=== PATIENT | female | born 1995 | race Hispanic/Latino ===

== ENCOUNTER 2024-11-12 01:30 | Inpatient (IN) | payer BC ==
[~2024-11-12] VITALS: Ht 162.6 cm; Wt 83.4 kg
[2024-11-12] MEDS: 0.9%NACL 1000ML 1,000 ML IV STA (01:46)
[2024-11-12 01:49] LABS: IMMATURE GRANULOCYTE ABSOLUTE 0.07 K/uL (0-1); NUCLEATED RED BLOOD CELLS 0.0 % (0.0-0.19); PLATELET COUNT (AUTO) 470 K/uL (130-400); RED BLOOD CELL COUNT(AUTO) 4.55 MIL/uL (4.00-5.50); RED CELL DISTRIBUTION WIDTH 14.4 % (11.0-15.5); WHITE BLOOD COUNT (AUTO) 15.6 K/uL (4.8-10.8)
[2024-11-12 02:12] LABS: CREATININE 0.7 mg/dL (0.5-1.0); GLOMERULAR FILTR. RATE CALC 121.0 mL/min (>90); GLUCOSE,RANDOM 157.0 mg/dL (70-105); HCG,QUANTITATIVE 0.0 mIU/mL (0-5); SODIUM SERUM 141.0 mmol/L (136-145); UREA NITROGEN, BLOOD 19.0 mg/dL (7-18)
--- NOTE | 2024-11-12 02:12 | ERN ---
ED Note History of Present Illness Stated Complaint: CHEST DISCOMFORT AFTER EATING EDIBLE Chief Complaint: Chest Pain Time Seen by MD: 01:33 Time Seen by Midlevel: 01:35 Dictation: 29-year-old female coming in via EMS for a hot sensation to the chest after eating an edible. No other complaints at this time. Allergies: Coded Allergies: No Known Drug Allergies (Unverified Allergy, Unknown, 11/12/24) Past Medical History Past Medical History: No Pertinent History Surgical History: Unknown Review of System Dictation Constitutional: Negative for fever,chills, and weight loss Eyes: Negative for injury, pain,redness, and discharge ENT: Negative for injury,pain or swelling Cardiovascular: Negative for chest pain, palpitations, and edema Respiratory: Negative for shortness of breath, cough, and wheezing, Abdomen/GI: Negative for abdominal pain, nausea, vomiting, diarrhea, and constipation Back: Negative for injury and pain : Negative for injury, bleeding and discharge MS/Extremity: Negative for injury and deformity Skin: Negative for rash, and discoloration Neuro: Negative for headache, weakness, numbness, tingling, and seizure Psych: Negative for suicide ideation, homicidal ideation, and hallucinations Review of Systems: was completed Initial Vital Sign VS Vital Signs Date Time Temp Pulse Resp B/P (MAP) Pulse Ox O2 Delivery O2 Flow Rate FiO2 11/12/24 01:32 98.8 124 19 128/78 100 Room Air 0 11/12/24 01:38 21 Physical Exam Dictation General: awake, alert, NAD Head/Face: Normocephalic, atraumatic Eyes: PERRL, EOMI, vision at baseline ENT: oral cavity clear, TMs clear, no signs of infection Neck: Trachea midline, supple, no nuchal rigidity Cardiovascular: RRR, normal S1/S2, No MRGs, no JVD Respiratory: CTAB, no respiratory distress, No rales or wheezes Abdomen: Soft, non-tender, non-distended, normal bowel sounds, no guarding or rebound. Skin: Warm, dry, normal turgor, no rash MS/Extremity: Pulses equal, no cyanosis, neurovascular intact, FROM Neuro: COAx4, GCS 15, strength 5/5, CN 2-12 intact, normal cerebellar exam, normal gait, Psych: Normal behavior, mood, and affect normal Results (Laboratory/Radiology) Laboratory/Radiology Laboratory Tests Test 11/12/24 01:35 11/12/24 03:22 11/12/24 06:30 White Blood Count 15.6 K/uL (4.8-10.8) H Red Blood Count 4.55 MIL/uL (4.00-5.50) Hemoglobin 11.9 g/dL (12.0-16.0) L Hematocrit 34.7 % (36-48) L Mean Corpuscular Volume 76.3 fL (79-99) L Mean Corpuscular Hemoglobin 26.2 pg (27.0-33.0) L Mean Corpuscular Hemoglobin Concent 34.3 g/dL (32.0-36.0) Red Cell Distribution Width 14.4 % (11.0-15.5) Platelet Count 470 K/uL (130-400) H Mean Platelet Volume 9.8 fL (7.5-10.5) Immature Granulocyte % (Auto) 0.4 % (0-1) Neutrophils (%) (Auto) 61.9 % (40.0-77.0) Lymphocytes (%) (Auto) 29.5 % (21.0-51.0) Monocytes (%) (Auto) 5.8 % (3.0-13.0) Eosinophils (%) (Auto) 1.6 % (0.0-8.0) Basophils (%) (Auto) 0.8 % (0.0-5.0) Neutrophils # (Auto) 9.7 K/uL (1.8-7.7) H Lymphocytes # (Auto) 4.6 K/uL (1.0-4.8) Monocytes # (Auto) 0.9 K/uL (0.1-1.0) Eosinophils # (Auto) 0.25 K/uL (0.00-0.70) Basophils # (Auto) 0.12 K/uL (0.00-0.20) Absolute Immature Granulocyte (auto 0.07 K/uL (0-1) Nucleated Red Blood Cells 0.0 % (0.0-0.19) Sodium Level 141 mmol/L (136-145) 138 mmol/L (136-145) Potassium Level 3.0 mmol/L (3.5-5.1) *L 4.6 mmol/L (3.5-5.1) Chloride Level 104 mmol/L (101-111) 105 mmol/L (101-111) Carbon Dioxide Level 25 mmol/L (21-32) 26 mmol/L (21-32) Blood Urea Nitrogen 19 mg/dL (7-18) H 14 mg/dL (7-18) Creatinine 0.7 mg/dL (0.5-1.0) 0.7 mg/dL (0.5-1.0) Glomerular Filtration Rate Calc 121 mL/min (>90) 121 mL/min (>90) Random Glucose 157 mg/dL (70-105) H 108 mg/dL (70-105) H Total Calcium 9.1 mg/dL (8.5-10.1) 8.6 mg/dL (8.5-10.1) Troponin I High Sensitivity 9 ng/L (4-50) Human Chorionic Gonadotropin, Quant 0 mIU/mL (0-5) Urine Color LIGHT-YELLOW (YELLOW) Urine Appearance CLOUDY (CLEAR) H Urine pH 5.0 (5.0-8.0) Urine Specific [place] 1.022 (1.001-1.031) Urine Protein NEGATIVE mg/dL (NEGATIVE) Urine Glucose (UA) NEGATIVE mg/dL (NEGATIVE) Urine Ketones NEGATIVE mg/dL (NEGATIVE) Urine Occult Blood SMALL (NEGATIVE) H Urine Nitrate NEGATIVE (NEGATIVE) Urine Bilirubin NEGATIVE mg/dL (NEGATIVE) Urine Urobilinogen 0.2 mg/dL (0.2-1.0) Urine Leukocyte Esterase 250 Rhett/uL (NEGATIVE) H Urine RBC 2-5 /HPF (0-1) H Urine WBC 11-25 /HPF (0-1) H Urine Squamous Epithelial Cells FEW /HPF (0-2) Urine Bacteria MOD /HPF (None Seen) Urine Opiates Screen NEGATIVE (NEGATIVE) Urine Barbiturates Screen NEGATIVE (NEGATIVE) Urine Phencyclidine Screen NEGATIVE (NEGATIVE) Urine Amphetamines Screen NEGATIVE (NEGATIVE) Urine Benzodiazepines Screen NEGATIVE (NEGATIVE) Urine Cocaine Screen NEGATIVE (NEGATIVE) Urine Marijuana (THC) Screen POSITIVE (NEGATIVE) H Labs Reviewed?: Yes EKG Comment: EKGs done at 0200. Sinus tachycardia at a rate of 122. No STEMI interpreted by ER ED Course ED Course Orders Procedure Category Date Status Time Cbc With Differential LAB 11/12/24 Complete 01:33 Basic Metabolic Panel LAB 11/12/24 Complete 01:33 Troponin I High LAB 11/12/24 Complete Sensitivity 01:33 Hcg,Quantitative LAB 11/12/24 Complete 01:33 12 Lead Ekg Tracing- EKG 11/12/24 Complete Technical 01:33 0.9%Nacl 1000ml (Ns PHA 11/12/24 Complete 1000ml) 01:36 Drug Screen Urine LAB 11/12/24 Complete 02:13 Urinalysis Profile LAB 11/12/24 Complete 02:13 Lorazepam 1 Mg PHA 11/12/24 Complete (Ativan) 02:44 Ondansetron 4mg Inj PHA 11/12/24 Complete (Zofran 4mg Inj) 02:44 Potassium Bicarb/Cit PHA 11/12/24 Complete Ac 25meq (K-Lyte Ta 02:44 Culture Urine JUSTYNA 11/12/24 In Process 03:43 Ceftriaxone 2gm Vial PHA 11/12/24 Complete (Rocephin 2gm Inj) 05:00 Lactated Ringers PHA 11/12/24 In Process 1000ml (Lactated 06:00 Basic Metabolic Panel LAB 11/12/24 Complete 05:51 Chest 1vw RAD 11/12/24 Taken 05:51 Current Medications Medications (Trade) Dose Ordered Sig/Bibi Route PRN Reason Start Time Stop Time Status Last Admin Dose Admin Ceftriaxone Sodium (Rocephin 2gm Inj) 2 gm ONCE ONCE IVPB 11/12/24 05:00 11/12/24 05:01 DC 11/12/24 05:04 Lactated Ringer's 546 ml @ 182 mls/hr ONCE ONCE IV 11/12/24 06:00 11/12/24 08:59 11/12/24 06:02 Lorazepam (AtiVAN) 1 mg ONCE STAT PO 11/12/24 02:44 11/12/24 02:47 DC 11/12/24 02:54 Ondansetron HCl (zoFRAN 4MG INJ) 4 mg ONCE STAT IVP 11/12/24 02:44 11/12/24 02:47 DC 11/12/24 02:53 Potassium Bicarbonate (K-Lyte Tablet Eff 25 Meq Tablet.eff) 50 meq ONCE STAT PO 11/12/24 02:44 11/12/24 02:47 DC 11/12/24 02:54 Sodium Chloride 1,000 ml @ 1,000 mls/hr Q1H STAT IV 11/12/24 01:36 11/12/24 02:35 DC 11/12/24 01:46 Vital Signs Date Time Temp Pulse Resp B/P (MAP) Pulse Ox O2 Delivery O2 Flow Rate FiO2 11/12/24 06:54 101 15 98/52 97 Room Air* 0 11/12/24 05:55 108 15 94/55 97 Room Air* 0 11/12/24 04:15 115 14 105/61 97 Room Air* 0 11/12/24 03:44 120 14 100/54 98 Room Air* 0 11/12/24 02:18 129 19 99/53 97 Room Air* 0 11/12/24 01:38 98.2 123 20 101/63 99 Room Air* 0 11/12/24 01:32 98.8 124 19 128/78 100 Room Air 0 Medical Decision Making MDM MDM: Differential diagnosis: UTI, hypotension, tachycardia, CBD abuse, Rationale: Tests considered and ordered secondary to shared decision making include: labs, ECG and radiology Previous outside records reviewed: Old ER visits. Risk of complication and/or morbidity or mortality of patient management: None Medications-Per medication reconciliation Need for hospitalization: Patient does meet criteria for hospitalization. Need for emergency major/minor surgery: No There are no social concerns with this patient. Prescription drug management Prescriptions will include symptomatic care Patient's prior external medical records from other ER visits were reviewed by me as indicated. Prior testing and results from previous visits were reviewed. Prior tests were taken into account with medical decision making and resource utilization, independent historian/historians were used to obtain complete medical history. I independently interpreted the test that were performed, results were reviewed by me and considered findings on radiology if ordered. Medical management and examination interpretation discussions were had by me with other qualified healthcare professionals as indicated for the patient's care. Patient is a 29-year-old female coming in complaining of generalized body weakness. Vital signs showed patient to be hypotensive and tachycardic patient did admit to using CBD gummies, patient was found to have elevated white blood cell count with a UTI. Antibiotics were given. Patient did improved but on ambulation become slightly hypotensive the patient has been admitted under the care of [facility] for ongoing management. DX & DISP Disposition: Inpatient Decision to Admit Time: 07:38 Departure Impression: Primary Impression: Sepsis Additional Impressions: UTI (urinary tract infection), Cannabis abuse Condition: Stable Referrals: CASSIDY CRAWFORD MD (PCP) JUVENAL LISA NP Nov 12, 2024 02:12 ANA PAGE MD Nov 12, 2024 06:32 SUNDAY CORONADO MD Nov 12, 2024 07:40
--- NOTE | 2024-11-12 02:18 | NUR ---
PT CARE ASSUMED AT THIS TIME
[2024-11-12 03:42] LABS: APPEARANCE,URINE CLOUDY (CLEAR); GLUCOSE, URINE (UA) NEGATIVE (NEGATIVE); LEUKOCYTE ESTERASE ,URINE 250 Leu/uL (NEGATIVE); NITRATE,URINE NEGATIVE (NEGATIVE); OCCULT BLOOD,URINE SMALL (NEGATIVE)
[2024-11-12 03:43] LABS: ADD UA MICROSCOPIC YES
[2024-11-12 03:46] LABS: SQUAMOUS EPITHELIAL CELL,UR FEW /HPF (0-2)
[2024-11-12 03:50] LABS: AMPHET/METH SCREEN,URINE NEGATIVE (NEGATIVE); BARBITURATE SCREEN, URINE NEGATIVE (NEGATIVE); CANNABINOID SCREEN,URINE POSITIVE (NEGATIVE); COCAINE SCREEN,URINE NEGATIVE (NEGATIVE)
[2024-11-12] MEDS: LACTATED RINGERS 1000ML 546 ML IV ONE (06:02)
--- NOTE | 2024-11-12 06:52 | NUR ---
PER DR. PAGE FLUIDS OF LR IS TO BE STOPPED AT THIS TIME.
[2024-11-12 06:59] LABS: CREATININE 0.7 mg/dL (0.5-1.0); GLOMERULAR FILTR. RATE CALC 121.0 mL/min (>90); GLUCOSE,RANDOM 108.0 mg/dL (70-105); SODIUM SERUM 138.0 mmol/L (136-145); UREA NITROGEN, BLOOD 14.0 mg/dL (7-18)
--- NOTE | 2024-11-12 07:08 | NUR ---
REPORT GIVEN TO MONTY GRACIA AT THIS TIME
--- NOTE | 2024-11-12 07:17 | EKG ---
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
[2024-11-12] MEDS: LACTATED RINGERS 1000ML IV SCH (08:23)
[2024-11-12] MEDS: FAMOTIDINE 20MG TAB PO SCH (08:48)
[2024-11-12 09:35] LABS: CREATINE KINASE, TOTAL 81.0 U/L (21-232); HCG,QUANTITATIVE 0.0 mIU/mL (0-5)
--- NOTE | 2024-11-12 11:17 | NUR ---
DCP: HOME Per mother Katherine Mason [phone] who was at bedside, pt lives in apt with her moises Teague [phone]. Pt works at [employer], is independent of her own ADLS, ambulation, home management and meal prep. PCP is Herminio Abarca and uses [facility] for rx. Mother denies dc needs and pt will return home at dc Addendum: 11/12/24 at 1120 by ANNE SOARES SS Amended: Links added.
--- NOTE | 2024-11-12 15:02 | HP ---
[facility] HISTORY & PHYSICAL Date Patient Seen: Nov 12, 2024 Time of Visit: 1200 Supervising Physician: Dr. Arambula Primary Care Physician: Dr. Nikia Abarca Outpatient Specialists: [ ] Inpatient Consults: [ ] PROBLEM LIST: Atypical angina after consuming a edible Acute complicated cystitis Substance abuse HPI: This is a 29-year-old female with no past medical history coming in to the emergency department for complaints of chest discomfort after eating a edible. At time of visit patient denies any reoccurrence chest discomfort or chest pain. Patient's troponin levels have been unremarkable. Patient's UDS positive for THC. Patient did have a white count of 15.6, and noted to have a urinary tract infection. We will start patient on Rocephin2 g daily. We will follow up with the urine culture. Patient's EKG shows sinus tach, we will start gentle IV hydration and repeat labs tomorrow, and continue to monitor patient closely PAST MEDICAL HX: see above PAST SURGICAL HX: noncontributory SOCIAL HISTORY: No tobacco, ETOH, or illicit drug use Coded Allergies: No Known Drug Allergies (Unverified Allergy, Unknown, 11/12/24) REVIEW OF SYSTEMS: 12 point ROS reviewed with patient. Pertinent positives mentioned above. Otherwise negative. PHYSICAL EXAM: GENERAL: alert, weak, awake oriented x 3 HEENT: EOMI, Sclera non icteric, moist mucosa NECK: Supple, no JVD, trachea midline LUNGS: Clear breath sounds bilaterally. No wheezes HEART: Regular rate and rhythm. Normal S1 and S2, without murmurs ABD: Abdomen soft, nontender. Bowel sounds present EXT: No clubbing cyanosis or edema NEURO: Alert and oriented to person, follows commands Vital Signs (last 8hr) Date Time Temp Pulse Resp B/P (MAP) Pulse Ox O2 Delivery O2 Flow Rate FiO2 11/12/24 13:58 98.2 102 16 105/42 100 Room Air* 0 21 11/12/24 11:02 98.2 113 16 98/42 100 Room Air* 0 21 11/12/24 08:08 98.2 105 16 96/54 100 Room Air* 0 21 LABS: Hematology Labs: Test 11/12/24 01:35 Range/Units White Blood Count 15.6 H 4.8-10.8 K/uL Red Blood Count 4.55 4.00-5.50 MIL/uL Hemoglobin 11.9 L 12.0-16.0 g/dL Hematocrit 34.7 L 36-48 % Mean Corpuscular Volume 76.3 L 79-99 fL Mean Corpuscular Hemoglobin 26.2 L 27.0-33.0 pg Mean Corpuscular Hemoglobin Concent 34.3 32.0-36.0 g/dL Red Cell Distribution Width 14.4 11.0-15.5 % Platelet Count 470 H 130-400 K/uL Mean Platelet Volume 9.8 7.5-10.5 fL Immature Granulocyte % (Auto) 0.4 0-1 % Neutrophils (%) (Auto) 61.9 40.0-77.0 % Lymphocytes (%) (Auto) 29.5 21.0-51.0 % Monocytes (%) (Auto) 5.8 3.0-13.0 % Eosinophils (%) (Auto) 1.6 0.0-8.0 % Basophils (%) (Auto) 0.8 0.0-5.0 % Neutrophils # (Auto) 9.7 H 1.8-7.7 K/uL Lymphocytes # (Auto) 4.6 1.0-4.8 K/uL Monocytes # (Auto) 0.9 0.1-1.0 K/uL Eosinophils # (Auto) 0.25 0.00-0.70 K/uL Basophils # (Auto) 0.12 0.00-0.20 K/uL Absolute Immature Granulocyte (auto 0.07 0-1 K/uL Nucleated Red Blood Cells 0.0 0.0-0.19 % Erythrocyte Sedimentation Rate 15 0-20 MM/HR Chemistry Labs: Test 11/12/24 08:58 11/12/24 06:30 Range/Units Lactic Acid Level 1.6 0.8-2.5 mmol/L Total Creatine Kinase 81 21-232 U/L Troponin I High Sensitivity 10 4-50 ng/L Procalcitonin < 0.05 L 0.05-0.5 ng/mL Thyroid Stimulating Hormone (TSH) 0.87 0.36-3.74 uIU/mL Human Chorionic Gonadotropin, Quant 0 0-5 mIU/mL Sodium Level 138 136-145 mmol/L Potassium Level 4.6 3.5-5.1 mmol/L Chloride Level 105 101-111 mmol/L Carbon Dioxide Level 26 21-32 mmol/L Blood Urea Nitrogen 14 7-18 mg/dL Creatinine 0.7 0.5-1.0 mg/dL Glomerular Filtration Rate Calc 121 >90 mL/min Random Glucose 108 H 70-105 mg/dL Total Calcium 8.6 8.5-10.1 mg/dL DIAGNOSTICS / RADIOLOGY RESULTS: na PLAN Start gentle IV hydration Continue Rocephin2 g daily Repeat labs in a.m. Follow up with the urine culture Continue tele monitoring NEURO: Minimize central acting medications as possible. Maintain fall precautions, adequate lighting during the day PULMONARY: Supplemental 02 as needed. Maintain aspiration precautions at all times CARDIOVASCULAR: Follow hemodynamics. Vital signs per facility protocol GI & NUTRITION: Continue with nutritional support. Continue stool softeners and laxatives as needed. KIDNEYS & ELECTROLYTES: Strict monitoring of intake, output and overall fluid balance. Avoid nephrotoxic medications to the extent possible. Medications to be dosed according to renal function. Monitor electrolytes and replace as needed ENDOCRINE: Maintain blood glucose between 100-180 at all times. Hypoglycemia protocol in place INFECTIOUS DISEASE: Trend temperature, WBC and procalcitonin level Follow cultures, deescalate antibiotics as soon as possible. Panculture if new onset fever ONCOLOGY/HEMATOLOGY/COAGULATION: Monitor for s/s of bleeding Monitor hemoglobin, coagulation studies as needed SKIN: Pressure ulcer prevention per facility protocol Specialty mattress ORTHO/REHAB: Continue PT/OT Prophylaxis: Continue GI and DVT prophylaxis Code Status: Full Resuscitation Disposition: TBD Other: Case discussed with supervising physician plan of care agreed upon MIGUEL GARCIA Nov 12, 2024 15:02
[2024-11-12] MEDS: 0.9%NACL 1000ML 1,000 ML IV SCH (17:26)
--- NOTE | 2024-11-12 18:30 | NUR ---
PATIENT SETTLED INTO HER ROOM. TELE PACK PLACED AND VITALS TAKEN. PATIENT WAS GIVEN INSTRUCTIONS ON USING CALL LIGHT FOR ASSISTANCE. VISITATIONS HOUR WERE MENTIONED. PATIENT DENIES ANY CHEST PAIN AND DENIES SHORTNESS OF BREATH.
[2024-11-12 18:39] VITALS: BP 112/69; PULSE 97; RESP 18; TEMP 97.9
[2024-11-12 20:00] VITALS: BP 114/66; PULSE 105; RESP 18; TEMP 98; O2SAT 98
[2024-11-13] VITALS: PULSE 97; RESP 18; TEMP 98
[2024-11-13 04:00] VITALS: BP 118/64; PULSE 78; RESP 18; TEMP 98.3
[2024-11-13 04:21] LABS: ASPARTATE AMINOTRANSFERASE 22.0 U/L (10-37); CREATININE 0.5 mg/dL (0.5-1.0); GLOMERULAR FILTR. RATE CALC 132.0 mL/min (>90); GLUCOSE,RANDOM 95.0 mg/dL (70-105); SODIUM SERUM 141.0 mmol/L (136-145); TOTAL PROTEIN, SERUM 6.3 g/dL (6.0-8.3); UREA NITROGEN, BLOOD 17.0 mg/dL (7-18)
[2024-11-13 07:24] VITALS: BP 114/75; PULSE 92; RESP 20; TEMP 97.9
[2024-11-13 09:37] VITALS: O2SAT 99
[2024-11-13 11:21] LABS: NUCLEATED RED BLOOD CELLS 0.0 % (0.0-0.19); PLATELET COUNT (AUTO) 359.0 K/uL (130-400); RED BLOOD CELL COUNT(AUTO) 4.02 MIL/uL (4.00-5.50); RED CELL DISTRIBUTION WIDTH 14.7 % (11.0-15.5); WHITE BLOOD COUNT (AUTO) 11.1 K/uL (4.8-10.8)
[2024-11-13 11:52] VITALS: BP 117/72; PULSE 83; RESP 20; TEMP 98.8
--- NOTE | 2024-11-13 12:57 | DS ---
[facility] DISCHARGE SUMMARY Date Patient Seen: Nov 13, 2024 Time of Visit:1205 Supervising Physician: Dr. Arambula Primary Care Physician: Dr. Nikia Abarca Outpatient Specialists: [ ] Inpatient Consults: [ ] PROBLEM LIST: Atypical angina after consuming a edible, resolved Acute complicated cystitis , we will complete treatment with outpatient oral antibiotic Substance abuse HOSPITAL COURSE: HPI (per admitting provider)This is a 29-year-old female with no past medical history coming in to the emergency department for complaints of chest discomfort after eating a edible. At time of visit patient denies any reoccurrence chest discomfort or chest pain. Patient's troponin levels have been unremarkable. Patient's UDS positive for THC. Patient did have a white count of 15.6, and noted to have a urinary tract infection. We will start patient on Rocephin2 g daily. We will follow up with the urine culture. Patient's EKG shows sinus tach, we will start gentle IV hydration and repeat labs tomorrow, and continue to monitor patient closely Patient was seen and examined by bedside with family present. Patient is awake alert able to answer simple questions appropriately. Patient states feeling much better ready to. Patient not come of any reoccurrence chest pain while in the hospital. Patient denies any shortness of breadth. Denies nausea vomiting or abdominal pain. He is tolerating p.o. diet is bowel movements. Instructed patient be discharged today and will need to follow up PCP within 3-5 days upon discharge also instructed on the importance of substance abuse and advised to no longer use edibles. 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 b.i.d. x3 days Pt hemodynamically stable and afebrile at time of discharge. PCP notified of patients admission, hospital course and discharge. PHYSICAL EXAM: GENERAL: alert, weak, awake oriented x 3 HEENT: EOMI, Sclera non icteric, moist mucosa NECK: Supple, no JVD, trachea midline LUNGS: Clear breath sounds bilaterally. No wheezes HEART: Regular rate and rhythm. Normal S1 and S2, without murmurs ABD: Abdomen soft, nontender. Bowel sounds present EXT: No clubbing cyanosis or edema NEURO: Alert and oriented to person, follows commands FOLLOW-UP: Follow-up with PCP in 2-3 days RECOMMENDATIONS: See Discharge Instructions This case was seen and discussed with my supervising physician. 35 minutes spent on discharge process, including evaluation of the patient, discussion with nursing staff, medication reconciliation and follow-up appointments MIGUEL GARCIA [facility] Nov 13, 2024 12:56
== END 2024-11-13 14:20 | disposition home or self-care (01) | DRG 311 ==
LOC: EDH 01:30 → EDHIP 08:00 → 2DH 18:30
PROVIDERS: ADMIT Internal Medicine; ATTEND Internal Medicine
DX: I20.9 Angina pectoris, unspecified (principal); N30.00 Acute cystitis without hematuria; F19.10 Other psychoactive substance abuse, uncomplicated; F12.10 Cannabis abuse, uncomplicated
CPT/HCPCS: 36415; 71045; 80048; 80053; 80305; 81001; 82550; 83036; 83605; 84145; 84443; 84484; 84702; 85025; 85027; 85651; 87040; 87086; 93005; 96374; 99285; G0378; J0696; J2405; J7030; J7120